=== PATIENT | male | born 1965 | race African-American/Black ===

== ENCOUNTER 2021-02-10 04:30 | Day surgery (SDC) | payer OTHER ==
[2021-02-09 12:17] VITALS: BMI 31.4
[2021-02-10 08:13] VITALS: TEMP 97.5
[2021-02-10 09:17] VITALS: BP 129/83; PULSE 70
[2021-02-10] MEDS ORDERED: LACTATED RINGERS SOLUTION 1,000 ML IV SCH (11:45)
== END 2021-02-10 09:17 | disposition home or self-care (01) ==
LOC: JASU-ENDO 04:30
PROVIDERS: ATTEND Internal Medicine Gastroenterology
PROC: 0DBP8ZX Excision of Rectum, Via Natural or Artificial Opening Endoscopic, Diagnostic (ICD-10-PCS; 2021-02-10)
PROC: 0DBM8ZX Excision of Descending Colon, Via Natural or Artificial Opening Endoscopic, Diagnostic (ICD-10-PCS; principal; 2021-02-10 11:00)
DX: Z12.11 Encounter for screening for malignant neoplasm of colon (principal); K63.89 Other specified diseases of intestine; K62.1 Rectal polyp; K63.5 Polyp of colon; Z86.010 Personal history of colon polyps
CPT/HCPCS: 88305-TC

== ENCOUNTER 2024-07-01 06:05 | Day surgery (SDC) | payer OTHER ==
[2024-06-25 13:56] VITALS: BMI 28.5
[2024-07-01] MEDS ORDERED: oxyCODONE HCL 5 MG TABLET PO PRN (07:01)
[2024-07-01] MEDS ORDERED: ONDANSETRON 4 MG/2 ML VIAL IVPUSH PRN ×2 (07:01→10:52)
[2024-07-01] MEDS ORDERED: MIDAZOLAM HCL 2 MG/2 ML SINGLE DOSE VIAL ONE ×2 (07:07→07:46)
[2024-07-01] MEDS ORDERED: PROPOFOL 60 ML ONE (07:09)
[2024-07-01] MEDS ORDERED: VANCOMYCIN 1,000 MG VIAL (RESTRICTED TO ID ONLY) ONE (07:15)
[2024-07-01] MEDS ORDERED: LACTATED RINGERS SOLUTION 1,000 ML IV SCH (07:15)
[2024-07-01] MEDS ORDERED: BUPIVACAINE HCL/PF 0.5% (5MG/ML) 10 ML VIAL ONE (07:19)
[2024-07-01] MEDS ORDERED: ACETAMINOPHEN INJECTION 100 ML ONE (07:19)
[2024-07-01] MEDS ORDERED: ceFAZolin SODIUM 1 GM VIAL ONE ×2 (07:56)
[2024-07-01] MEDS ORDERED: ONDANSETRON 4 MG/2 ML VIAL ONE ×2 (09:03)
[2024-07-01] MEDS ORDERED: DEXAMETHASONE SOD PHOSPHATE 4 MG/1 ML VIAL ONE ×2 (09:03)
[2024-07-01] MEDS ORDERED: TRANEXAMIC ACID 1000 MG/10 ML VIAL ONE ×2 (09:03→09:50)
[2024-07-01] MEDS ORDERED: KETOROLAC TROMETHAMINE 30 MG/1 ML VIAL ONE (09:03)
[2024-07-01] MEDS ORDERED: PHENYLEPHRINE HCL 10 MG/1 ML SINGLE DOSE VIAL ONE (09:09)
[2024-07-01] MEDS ORDERED: BUPIVICAINE 0.25%/MORPH PF/KETOROLAC - 51ML DISP.SYRINGE IA ONE (09:25)
[2024-07-01] MEDS ORDERED: MAG HYDROX/AL HYDROX/SIMETH 30 ML UNIT-DOSE CUP PO PRN (10:52)
[2024-07-01] MEDS: oxyCODONE HCL 5 MG TABLET PO PRN (14:49)
[2024-07-01] MEDS: LACTATED RINGERS SOLUTION 1,000 ML IV SCH (14:52)
[2024-07-01] MEDS: CEFAZOLIN SODIUM 2 GM in DEXTROSE 5%-WATER 100 ML IVPB SCH (15:54)
[2024-07-01] MEDS: GABAPENTIN 300 MG CAPSULE PO SCH (21:55)
[2024-07-01] MEDS: ASPIRIN 325 MG TABLET PO SCH (21:55)
[2024-07-01] MEDS: SENNOSIDES/DOCUSATE COMBO (SENNA PLUS) TABLET (UD) PO SCH (21:55)
[2024-07-02 01:53] VITALS: RESP 18
[2024-07-02 08:20] LABS: HEMATOCRIT 38.7 % (35.4-49); HEMOGLOBIN 12.5 G/dL (11.7-16.9); MCH 26.8 pg (25.7-33.7); MCHC 32.4 g/dl (32.0-35.9); MEAN CELL VOLUME 82.7 fl (80-96); PLATELET COUNT 256.1 10^3/uL (134-434); RBC 4.68 10^6/uL (4.00-5.60); WHITE BLOOD COUNT 14.1 10^3/uL (4.0-10.8)
[2024-07-02] MEDS: ACETAMINOPHEN 325 MG TABLET (FP) PO PRN (08:41)
[2024-07-02 08:46] LABS: CALCIUM 8.8 mg/dl (8.5-10.1); CREATININE 1.1 mg/dl (0.6-1.3); POTASSIUM 4.2 mmol/L (3.5-5.1)
[2024-07-02 10:14] VITALS: BP 129/84; PULSE 76; TEMP 98.1
[2024-07-02] MEDS: MULTIVITAMINS (DAILY MVI) TABLET (FP) PO SCH (10:21)
[2024-07-02] MEDS: PANTOPRAZOLE 40 MG TABLET PO SCH (10:23)
[2024-07-02] MEDS: metoPROLOL SUCCINATE 25 MG TAB.SR.24H (FP) PO SCH (11:37)
[2024-07-02] MEDS: LOSARTAN POTASSIUM 50 MG TABLET PO SCH (11:37)
[2024-07-02] MEDS: amLODIPine BESYLATE 10 MG TABLET (FP) PO SCH (11:37)
[2024-07-02] MEDS: metFORMIN HCL 500 MG TABLET (FP) PO ONE (14:55)
== END 2024-07-02 15:00 | disposition home or self-care (01) ==
LOC: FASUSAT 06:05 → FM/S 11:43 → FASUSAT 07-02 15:00
PROC: 8E0Y0CZ Robotic Assisted Procedure of Lower Extremity, Open Approach (ICD-10-PCS; 2024-07-01)
PROC: 0SR904A Replacement of Right Hip Joint with Ceramic on Polyethylene Synthetic Substitute, Uncemented, Open Approach (ICD-10-PCS; principal; 2024-07-01 08:24)
DX: M16.11 Unilateral primary osteoarthritis, right hip (principal)
CPT/HCPCS: 20985; 27130; C1776; 36415; 73502-TC-RT-FY; 80048; 82962; 85027; 88305-TC; 88311-TC; 94760; 97010-GP; 97116-GP; 97162-GP; C1889; J0131